=== PATIENT | male | born 2000 | race Caucasian/White ===

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

== ENCOUNTER → 2018-11-08 | Outpatient (CLI) | payer BC, MEDICAID | LOC: CLAB 08:18 | PROVIDERS: ATTEND Family Medicine | DX: M41.85 Other forms of scoliosis, thoracolumbar region (principal) ==